=== PATIENT | female | born 1955 | race Caucasian/White ===

== ENCOUNTER 2017-07-02 20:27 | Emergency (ER) | payer OTHER ==
[2017-07-02] MEDS ORDERED: Ondansetron 4 MG/2 ML SDV IVPUSH ONE (20:57)
[2017-07-02] MEDS ORDERED: Sodium Chloride 0.9% 1,000 ML IV ONE (20:57)
--- NOTE | 2017-07-02 21:00 | EDM.PDOC ---
ED HPI GENERAL MEDICAL PROBLEM - General Chief Complaint: Gastrointestinal Problem Stated Complaint: VOMITING/DIARRHEA Time Seen by Provider: 07/02/17 20:43 - History of Present Illness INITIAL COMMENTS - FREE TEXT/NARRATIVE: HISTORY AND PHYSICAL: History of present illness: Patient is a 61-year-old female who presents with a concern of vomiting diarrhea 1 day a concern of fluid exposure. She denies fever chills chest pain shortness of breath urinary symptoms vaginal discharge bleeding or other concern Review of systems: As per history of present illness and below otherwise all systems reviewed and negative. Past medical history: As per history of present illness and as reviewed below otherwise noncontributory. Surgical history: As per history of present illness and as reviewed below otherwise noncontributory. Social history: No reported history of drug or alcohol abuse. Family history: As per history of present illness and as reviewed below otherwise noncontributory. Physical exam: HEENT: Atraumatic, normocephalic, pupils reactive, negative for conjunctival pallor or scleral icterus, mucous membranes dry, throat clear, neck supple, nontender, trachea midline. Lungs: Clear to auscultation, breath sounds equal bilaterally, chest nontender. Heart: S1S2, regular, negative for clicks, rubs, or JVD. Abdomen: Soft, nondistended, nontender. Negative for masses or hepatosplenomegaly. Negative for costovertebral tenderness. Pelvis: Stable nontender. Genitourinary: Deferred. Rectal: Deferred. Extremities: Atraumatic, negative for cords or calf pain. Neurovascular unremarkable. Neuro: Awake, alert, oriented. Cranial nerves II through XII unremarkable. Cerebellum unremarkable. Motor and sensory unremarkable throughout. Exam nonfocal. Diagnostics: CBC CMP influenza screen lipase UA Therapeutics: Saline 1 L bolus Zofran 4 mg IV Impression: #1vomiting/diarrhea with dehydration probable viral syndrome Definitive disposition and diagnosis as appropriate pending reevaluation and review of above. - Related Data Allergies Allergy/AdvReac Type Severity Reaction Status Date / Time codeine Allergy Nausea Verified 07/02/17 20:49 Penicillins Allergy Hives Verified 07/02/17 20:49 Sulfa (Sulfonamide Allergy Vomiting Verified 07/02/17 20:49 Antibiotics) Home Meds: Home Meds Levothyroxine Sodium [Synthroid] 125 mcg PO DAILY 03/26/14 [History] Omeprazole Magnesium [Prilosec Otc] 20 mg PO ASDIRECTED PRN 03/26/14 [History] Past Medical History Gastrointestinal History: Reports: Diverticulosis, GERD [employer] History: Reports: Other OB/BYN History: Cyst on her fallopian tube Endocrine/Metabolic History: Reports: Hypothyroidism - Infectious Disease History Infectious Disease History: Reports: Chicken Pox, Mumps - Past Surgical History HEENT Surgical History: Reports: Adenoidectomy, LASIK, Tonsillectomy, Other ( See Below) GI Surgical History: Reports: Cholecystectomy, Colonoscopy, Other (See Below) Other GI Surgeries/Procedures: sigmoid colon growth, surgery Social & Family History - Family History Family Medical History: Noncontributory - Tobacco Use Smoking Status *Q: Former Smoker Used Tobacco, but Quit: Yes Month/Year Tobacco Last Used: 1980 - Caffeine Use Caffeine Use: Reports: Coffee - Alcohol Use Number of Drinks Per Day: 0 - Recreational Drug Use Recreational Drug Use: Yes Drug Use in Last 12 Months: No ED ROS GENERAL - Review of Systems Review Of Systems: ROS reveals no pertinent complaints other than HPI. ED EXAM, GENERAL - Physical Exam Exam: See Below (See dictation) Course - Vital Signs Last Recorded V/S: Last Vital Signs Temp 36.8 C 07/02/17 20:47 Pulse 95 07/02/17 20:47 Resp 12 07/02/17 20:47 BP 129/66 07/02/17 20:47 Pulse Ox 93 L 07/02/17 20:47 - Orders/Labs/Meds Orders: Active Orders 24 hr Category Date Time Status COMPREHENSIVE METABOLIC PN,CMP [CHEM] Stat Lab 07/02/17 21:08 Received INFLUENZA A+B AG SCREEN [RM] Stat Lab 07/02/17 21:08 Received LIPASE [CHEM] Stat Lab 07/02/17 21:08 Received UA W/MICROSCOPIC [URIN] Stat Lab 07/02/17 21:05 Received Sodium Chloride 0.9% [Normal Saline] 1,000 ml Med 07/02/17 20:57 Active IV STAT Medication Orders Sodium Chloride (Normal Saline) 1,000 mls @ 999 mls/hr IV STAT ONE Stop: 07/02/17 21:57 Last Admin: 07/02/17 21:15 Dose: 999 mls/hr Labs: Laboratory Tests 07/02/17 Range/Units 21:08 WBC 9.64 (4.0-11.0) K/uL RBC 4.36 (4.30-5.90) M/uL Hgb 13.9 (12.0-16.0) g/dL Hct 41.7 (36.0-46.0) % MCV 95.6 (80.0-98.0) fL MCH 31.9 (27.0-32.0) pg MCHC 33.3 (31.0-37.0) g/dL RDW Std Deviation 47.1 (28.0-62.0) fl RDW Coeff of Valentín 13 (11.0-15.0) % Plt Count 244 (150-400) K/uL MPV 9.80 (7.40-12.00) fL Neut % (Auto) 93.9 H (48.0-80.0) % Lymph % (Auto) 3.5 L (16.0-40.0) % [place] % (Auto) 2.6 (0.0-15.0) % Eos % (Auto) 0.0 (0.0-7.0) % Baso % (Auto) 0.0 (0.0-1.5) % Neut # (Auto) 9.1 H (1.4-5.7) K/uL Lymph # (Auto) 0.3 L (0.6-2.4) K/uL [place] # (Auto) 0.3 (0.0-0.8) K/uL Eos # (Auto) 0.0 (0.0-0.7) K/uL Baso # (Auto) 0.0 (0.0-0.1) K/uL Nucleated RBC % 0.0 /100WBC Nucleated RBCs # 0 K/uL Meds: Medications Generic Name Dose Route Start Last Admin Trade Name Freq PRN Reason Stop Dose Admin Sodium Chloride 1,000 mls @ 999 mls/hr 07/02/17 20:57 07/02/17 21:15 Normal Saline IV 07/02/17 21:57 999 mls/hr STAT ONE Administration Discontinued Medications Generic Name Dose Route Start Last Admin Trade Name Freq PRN Reason Stop Dose Admin Ondansetron HCl 4 mg 07/02/17 20:57 07/02/17 21:15 Zofran IVPUSH 07/02/17 20:58 4 mg ONETIME ONE Administration Ondansetron HCl Confirm 07/02/17 21:06 07/02/17 21:17 Zofran Administered 07/02/17 21:07 Not Given Dose 4 mg .ROUTE .STK-MED ONE Departure - Departure Time of Disposition: 21:27 Disposition: Home, Self-Care 01 Condition: Good Clinical Impression: Vomiting, Diarrhea, Viral syndrome - Discharge Information Referrals: Lan Cabello MD [Primary Care Provider] - Forms: ED Department Discharge Additional Instructions: The following information is given to patients seen in the emergency department who are being discharged to home. This information is to outline your options for follow-up care. We provide all patients seen in our emergency department with a follow-up referral. The need for follow-up, as well as the timing and circumstances, are variable depending upon the specifics of your emergency department visit. If you don't have a primary care physician on staff, we will provide you with a referral. We always advise you to contact your personal physician following an emergency department visit to inform them of the circumstance of the visit and for follow-up with them and/or the need for any referrals to a consulting specialist. The emergency department will also refer you to a specialist when appropriate. This referral assures that you have the opportunity for followup care with a specialist. All of these measure are taken in an effort to provide you with optimal care, which includes your followup. Under all circumstances we always encourage you to contact your private physician who remains a resource for coordinating your care. When calling for followup care, please make the office aware that this follow-up is from your recent emergency room visit. If for any reason you are refused follow-up, please contact the [facility] emergency department at and asked to speak to the emergency department charge nurse. Push fluids clear liquids 24 hours now Sujatha 72 hours follow-up primary medical doctor as discussed and return as needed as discussed - My Orders Last 24 Hours: My Active Orders 07/02/17 20:57 Sodium Chloride 0.9% [Normal Saline] 1,000 ml IV STAT 07/02/17 21:05 UA W/MICROSCOPIC [URIN] Stat 07/02/17 21:08 COMPREHENSIVE METABOLIC PN,CMP [CHEM] Stat INFLUENZA A+B AG SCREEN [RM] Stat LIPASE [CHEM] Stat - Assessment/Plan Last 24 Hours: My Active Orders 07/02/17 20:57 Sodium Chloride 0.9% [Normal Saline] 1,000 ml IV STAT 07/02/17 21:05 UA W/MICROSCOPIC [URIN] Stat 07/02/17 21:08 COMPREHENSIVE METABOLIC PN,CMP [CHEM] Stat INFLUENZA A+B AG SCREEN [RM] Stat LIPASE [CHEM] Stat
[2017-07-02] MEDS ORDERED: Ondansetron 4 MG/2 ML SDV ONE (21:06)
[2017-07-02] MEDS ORDERED: Acetaminophen 500 MG Tab PO ONE (21:56)
[2017-07-02 22:17] VITALS: BP 117/51
== END 2017-07-02 22:15 | disposition home or self-care (01) ==
LOC: MW.ED 20:27
DX: R11.10 Vomiting, unspecified (principal); R19.7 Diarrhea, unspecified; B34.9 Viral infection, unspecified; E03.9 Hypothyroidism, unspecified; K21.9 Gastro-esophageal reflux disease without esophagitis; Z88.0 Allergy status to penicillin; Z88.2 Allergy status to sulfonamides; Z79.899 Other long term (current) drug therapy; Z98.890 Other specified postprocedural states; Z88.5 Allergy status to narcotic agent; Z87.891 Personal history of nicotine dependence
CPT/HCPCS: 36415; 80053; 81001; 83690; 85025; 87804; 96361; 96374; 99284; A9270; J2405; J7040; 99282